=== PATIENT | male | born 1995 | race African-American/Black ===

== ENCOUNTER 2022-05-27 18:55 | Emergency (ER) | payer OTHER ==
[~2022-05-27] VITALS: Ht 182.9 cm; Wt 67.6 kg
[2022-05-27] MEDS ORDERED: CEFTRIAXONE 500 MG VIAL IM ONE (19:30)
[2022-05-27] MEDS ORDERED: DOXYCYCLINE HYCLATE (100 MG) 100 MG TABLET PO ONE (19:30)
--- NOTE | 2022-05-27 19:30 | NUR ---
BIBS IN NEED OF STD CHECK, "SUSPECTS GF IS CHEATING" NO SYMPTOMS NOTED.
[2022-05-27] MEDS ORDERED: DOXY-326 PO (19:33)
[2022-05-27] MEDS ORDERED: CEFTRIAXONE 500 MG VIAL ONE (19:34)
[2022-05-27] MEDS ORDERED: DOXYCYCLINE HYCLATE (100 MG) 100 MG TABLET ONE (19:35)
[2022-05-27] MEDS ORDERED: LIDOCAINE 1% INJ 50 ML MDV IJ ONE (19:37)
--- NOTE | 2022-05-27 19:43 | NUR ---
ROOFER HELPER AT PT'S BEDSIDE
--- NOTE | 2022-05-27 19:47 | NUR ---
URINE COLLECTED AND SENT TO LAB
[2022-05-27 19:53] VITALS: BP 131/79
--- NOTE | 2022-05-27 19:53 | NUR ---
Patient discharged to home in stable condition. rx Written and verbal after care instructions given. Patient verbalizes understanding of instruction. pt ambulatory with a steady gait
[2022-05-27 20:44] LABS: BILIRUBIN,URINE NEGATIVE (NEGATIVE); COLOR,URINE YELLOW (YELLOW); LEUKOCYTE ESTERASE ,URINE NEGATIVE (NEGATIVE); NITRITE, URINE NEGATIVE (NEGATIVE); PROTEIN,URINE NEGATIVE (NEGATIVE); UGLUCOSE NEGATIVE (NEGATIVE); UROBILINOGEN,URINE 0.2 EU/dL (0.2)
== END 2022-05-27 19:54 | disposition home or self-care (01) ==
LOC: ER 18:59
DX: Z20.2 Contact with and (suspected) exposure to infections with a predominantly sexual mode of transmission (principal); Z60.2 Problems related to living alone
CPT/HCPCS: 99283; 86592; 86593; 96372; 81003; 36415; 87806; 87491; 87591; J3490; J0696